=== PATIENT | male | born 2000 | race Caucasian/White ===

== ENCOUNTER 2023-07-04 19:08 | Emergency (ER) | payer OTHER ==
[~2023-07-04] VITALS: Ht 182.9 cm; Wt 89.1 kg
[2023-07-04 19:09] VITALS: TEMP 99.2
[2023-07-04] MEDS ORDERED: AMOX875T2 PO (21:03)
[2023-07-04 21:42] VITALS: BP 147/87; O2SAT 98
== END 2023-07-04 21:44 | disposition home or self-care (01) ==
LOC: M ED 19:08
DX: H66.93 Otitis media, unspecified, bilateral (principal)